=== PATIENT | male | born 2005 | race Hispanic/Latino ===

== ENCOUNTER 2023-03-24 16:27 | Emergency (ER) | payer BC, SELFPAY ==
--- NOTE | ~2023-03-24 | XR_ITS ---
EXAMINATION: XR chest 2V DATE: 03/24/2023 17:00 INDICATION: Decreased lung sounds TECHNIQUE: PA and lateral views of the chest are obtained. COMPARISON: None available FINDINGS: The lungs are free of acute opacities. No pleural effusion or pneumothorax. The cardiomedia stinal silhouette is normal. The visualized bones and soft tissues are unremarkable. IMPRESSION: 1. No acute cardiopulmonary abnormality. Reviewed, dictated and finalized at location B.
[2023-03-24 16:41] VITALS: BP 135/67; PULSE 91; RESP 16; TEMP 37; O2SAT 100
--- NOTE | 2023-03-24 17:06 | ED.URI ---
HPI - URI/Sore Throat General Chief Complaint: Upper Respiratory Infection Stated Complaint: Sinus Time Seen by Provider: 03/24/23 17:07 Source: patient Mode of arrival: ambulatory Limitations: no limitations History of Present Illness HPI Narrative: 18-year-old male presents with complaint of sinus congestion, pressure, cough, chest congestion, runny nose, sore throat, postnasal drainage for the past 2 weeks. Patient taking [id number] DayQuil NyQuil cold and flu without relief of symptoms. Reports that he is blowing brown mucus from his nose. States over the past several days he has been sweaty but no fever. Reports shortness of breath but states is more related to being congested is nose and cannot breathe through it. All systems reviewed and negative except as noted above. Related Data Allergies Allergy/AdvReac Type Severity Reaction Status Date / Time No Known Allergies Allergy Verified 03/24/23 16:30 Review of Systems Review of Systems: CONSTITUTIONAL: Denies fever, chills. Reports sweats. EYES: Denies visual changes, redness, or discharge. ENT: Reports rhinorrhea, congestion, sinus pressure, postnasal drainage,sore throat. Denies otalgia. CARDIOVASCULAR: Denies chest pain, palpitations, or edema. RESPIRATORY: reports cough, chest congestion. Denies dyspnea. GASTROINTESTINAL: Denies abdominal pain, nausea, vomiting, or diarrhea. GENITOURINARY: Denies dysuria or hematuria. SKIN: Denies rash or itching. MUSCULOSKELETAL: Denies back pain, joint pain, or myalgia. NEUROLOGIC: Denies headache, numbness, or weakness. PSYCHIATRIC: Denies anxiety or depression. All other systems reviewed are negative, except as documented in HPI. PMFSH Comments At time of signature, agree with nursing past medical, surgical, social and family history. There is no relevant family history pertinent to the presenting complaint. Exam Narrative: GENERAL: This is a well-nourished, well-developed patient. Patient ill-appearing but in no distress. HEAD: normocephalic, atraumatic. EYES: PERRL. Sclera clear/white. Vision is grossly intact. EARS: External ears normal, auditory canals clear and without drainage, Fluid bilateral TMs without erythema. Dull light reflex. NOSE: External nose normal with Large amount of nasal, sinus congestion with purulent drainage, erythema and swelling to both nares. THROAT: Mucous membranes moist, Erythema with postnasal drainage NECK: Neck supple, non-tender without lymphadenopathy, masses or thyromegaly. CARDIOVASCULAR: Regular rate and rhythm without murmurs, gallops, or rubs. RESPIRATORY: Clear to auscultation. Breath sounds equal bilaterally. No wheezes, rales, or rhonchi. SKIN: warm, Dry, intact with no suspicious lesions or rash, good texture and turgor. NEURO: awake, alert, and oriented to person, place and time. There were no obvious focal neurologic abnormalities. EXTREMITIES: No joint tenderness, effusion, or edema noted. Course Course Level of Care: Express Care Visit Vital Signs Vital signs: Vital Signs Temperature 37.0 C 03/24/23 16:41 Pulse Rate 91 03/24/23 16:41 Respiratory Rate 16 03/24/23 16:41 Blood Pressure 135/67 03/24/23 16:41 Pulse Oximetry 100 03/24/23 16:41 Oxygen Delivery Room Air 03/24/23 16:41 Temperature 37.0 C 03/24/23 16:41 Pulse Rate 91 03/24/23 16:41 Respiratory Rate 16 03/24/23 16:41 Blood Pressure 135/67 03/24/23 16:41 Pulse Oximetry 100 03/24/23 16:41 Oxygen Delivery Room Air 03/24/23 16:41 reviewed MDM - URI/Sore Throat MDM Narrative Medical decision making narrative: Patient is aware of diagnosis, understands and agrees to treatment plan. Anticipatory guidance given. Patient agrees to follow-up as directed and is aware of reasons to seek care at the emergency department. Portions of this record may have been created with voice recognition software normal chest x-ray. Will treat p
== END 2023-03-24 17:15 | disposition home or self-care (01) ==
PROVIDERS: Emergency Provider Nurse Practitioner Family
DX: J01.90 Acute sinusitis, unspecified (principal)
CPT/HCPCS: 71046; 87081; 87880; 99213; G0463